=== PATIENT | female | born 1995 ===

== ENCOUNTER 2025-06-21 21:24 | Emergency (ER) | payer MEDICAID, SELFPAY ==
--- OUTSIDE RECORDS SUMMARY | 2025-05-31 12:00 | XMS_ITS ---
Author Organization [facility] enter Address [address] [place] [id number] Care Team Providers Care Portfolio Architect Name Role Phone Ted Reagan Primary Care Provider [phone] REASON FOR VISIT ED F/up Encounters Encounter Location Date Provider Diagnosis 21-Internal Medicine [address] [place] [phone] 05/31/2025 Ted Reagan Plan Of Treatment No Information Progress Notes * Maria Alejandra ROCADOB:[birth year] (30 yo F)Acc No.[id number]:05/31/2025 Progress Note Patient: Maria Alejandra COBB Provider: Lynnette Reagan MD :1995 A ge:30 Y S ex:Female Date:05/31/2025 Address:[address] [place] [address], [address] [facility], [id number] Subjective: * Chief Complaints: * 1 . ED F/up. * Medical History: * Ocular Surgical History: * Implants: Objective: * Vitals: Assessment: Plan: * Treatment: * Images: Billing Information: * Visit Code: * Procedure Codes: * Electronic signature of Erin Reagan MD on 06/21/2025 at 10:15 PM EDT Sign off status: Pending * Provider: Lynnette Reagan MD Date: 05/31/2025 Generated for Marga ng/Faogg/eTransmitting on: 06/21/2025 10:15 PM EDT
[2025-06-21 21:46] VITALS: BP 132/68; PULSE 87; RESP 16; TEMP 36.5; O2SAT 97; BMI 26.5
--- OUTSIDE RECORDS SUMMARY | 2025-06-21 22:15 | XMS_ITS | Clinical Summary ---
Author Organization [facility] Address [address] [place] [address] Phone Care Team Providers Care Machine Ii Trimmer Name Role Phone Ted Reagan MD Primary Care Provider [phone] Encounters Date Type Department Care Team Description 05/25/2025 9:09 PM EDT - 05/25/2025 10:33 PM EDT Emergency [facility] [address] [place] [address] Arley Zuniga MD Breast pain (Primary Dx) Discharge Disposition: Home or Self Care from Last 3 Months Social History Tobacco Use Types Packs/Day Years Used Date Smoking Tobacco: Never Assessed Comments Unknown Sex and Gender Information Value Date Recorded Sex Assigned at Female 05/25/2025 9:35 PM EDT Legal Sex Female 2:28 AM EST Gender Identity Female 05/25/2025 9:35 PM EDT Sexual Orientation Straight 05/25/2025 9: 35 PM EDT Obstetrics History Last Filed Vital Signs Vital Sign Reading Time Taken Comments Blood Pressure 150/65 05/25/2025 5:54 PM EDT Pulse 69 05/25/2025 5:54 PM EDT Temperature 36.6 C (97.8 F) 05/25/2025 5:54 PM EDT Respiratory Rate 16 05/25/2025 5:54 PM EDT Oxygen Saturation 98% 05/25/2025 5:54 PM EDT Inhaled Oxygen Concentration - - Weight 72.6 kg (160 lb) 04/09/2023 6:34 PM EDT Height 162.6 cm (5' 4 ) 04/09/2023 6:34 PM EDT Body Mass Index 27.46 04/09/2023 6:34 PM EDT Plan of Treatment Health Maintenance Due Date Last Done Comments Pneumococcal Vaccine: Pediatrics (0 to 5 Years) and At-Risk Patients (6 to 49 Years) (1 of 2 - PCV) 02/28/2016 Hepatitis B Vaccines (3 of 3 - 3-dose series) 12/22/2016 10/27/2016, 10/03/2014 HIV Screening 10/24/2022 Social Influencers of Health Screening 10/24/2022 Cervical Cancer Screening: Pap Smear 11/30/2022 11/30/2019 COVID-19 Vaccine ( season) 2024 Depression Screening 11/21/2024 Influenza Vaccine (#1) 2025 0, 12/08/2018, 12/18/2014, Additional history exists Cholesterol Screening (Lipid Panel) 05/25/2030 05/25/2025 DTaP,Tdap,and Td Vaccines (7 - Td or Tdap) 02/04/2031 02/04/2021, 12/24/2019, 06/05/2017, Additional history exists Meningococcal ACWY Vaccine Completed 09/03/2014 MMR Vaccines Completed 10/27/2016, 10/03/2014 Varicella Vaccines Completed 10/27/2016, 07/26/2012 Hepatitis C Screening Completed 09/04/2020 HPV Vaccines Completed 05/14/2021, 12/23, 08/11/2018, Additional history exists HIB Vaccines Aged Out No longer eligi ble based on patient's age to complete this topic Hepatitis A Vaccines Aged Out No long er eligible based on patient's age to complete this topic IPV Vaccines Aged Out No longer eligi ble based on patient's age to complete this topic Meningococcal B Vaccine Aged Out No l onger eligible based on patient's age to complete this topic RSV Immunization Patients Under 20 months Aged Out No longer eligible based on patient's age to complete this topic Procedures Procedure Name Priority Date/Time Associated Diagnosis Comments POC , URINE DIAGNOSTIC STAT 05/25/2025 9:52 PM EDT HCG, SERUM, QUALITATIVE STAT 05/25/2025 7:26 PM EDT CBC WITH AUTO DIFFERENTIAL STAT 05/25/2025 7:26 PM EDT LIPID PANEL STAT 05/25/2025 7:26 PM EDT B-TYPE NATRIURETIC PEPTIDE STAT 05/25/2025 7:26 PM EDT MAGNESIUM STAT 05/25/2025 7:26 PM EDT LIPASE STAT 05/25/2025 7:26 PM EDT COMPREHENSIVE METABOLIC PANEL STAT 05/25/2025 7:26 PM EDT CBC AND DIFFERENTIAL STAT 05/25/2025 7:26 PM EDT TROPONIN I HIGH SENSITIVITY STAT 05/25/2025 7:26 PM EDT XR CHEST 2 VIEWS STAT 05/25/2025 6:37 PM EDT from Last 3 Months Results * (ABNORMAL) POC , urine manually resulted (05/25/2025 9:52 PM EDT) [facility] HCG, Ur POC Negative Negative POC hCG Int QC Pass? Yes Yes EXPIRATION DATE POC 01/09/2027 LOT NUMBER POC [id number] Urine Urine specimen obtained by clean catch procedure / Unknown 05/25/2025 9:52 PM EDT us Arley Zuniga MD POINT OF CARE TEST ENTER/SALVADOR T ORDERABLES Final Result * Troponin I high sensitivity (05/25/2025 7:26 PM EDT) [facility] High Sensitivity Troponin I <2 0 - 14 ng/L LAB CHEMISTRY METHOD 05/25/2025 9:04 PM EDT [facility] Comment:Verified by repeat a nalysis Blood Venous blood specimen / Unknown Venipuncture / Unknown 05/25/2025 7:26 PM EDT 05/25/2025 7:43 PM EDT Narrative [facility] - 05/25/2025 9:04 PM EDT HSTnI results stratify to HIGH RISK category if any value >100 ng/L or delta at 1 hour is greater than or equal to 15 ng/L (male and female). Note: Delta values are not applicable if symptoms began more than 12 hours pre-arrival. Risk stratification should include the calculation of the HEART score. The testing method is an immunoenzymatic assay manufactured by [employer] and performed on the [employer] DxI 800. us Arley Zuniga MD LAB BLOOD ORDERABLES Final R esult [facility] [address] [place] [address], [place] [phone] * CBC auto differential (05/25/2025 7:26 PM EDT) WBC 7.3 4.0 - 10.5 K/mcL LAB HEMETOLOGY METHOD 05/25/2025 7:53 PM EDT [facility] RBC 4.32 4.20 - 5.40 M/mcL LAB HEMETOLOGY METHOD 05/25/2025 7:53 PM EDT [facility] Hemoglobin 13.7 12.5 - 16.0 g/dL LAB HEMETOLOGY METHOD 05/25/2025 7:53 PM EDT [facility] Hematocrit 40.6 37.0 - 47.0 % LAB HEMETOLOGY METHOD 05/25/2025 7:53 PM EDT [facility] MCV 94.0 78.0 - 100.0 FL LAB HEMETOLOGY METHOD 05/25/2025 7:53 PM EDT [facility] MCH 31.8 25.0 - 33.0 pcg LAB HEMETOLOGY METHOD 05/25/2025 7:53 PM EDT [facility] MCHC 33.8 32.0 - 36.0 g/dL LAB HEMETOLOGY METHOD 05/25/2025 7:53 PM EDT [facility] RDW 12.4 12.1 - 16.2 % LAB HEMETOLOGY METHOD 05/25/2025 7:53 PM EDT [facility] Platelets 259 150 - 450 K/mcL LAB HEMETOLOGY METHOD 05/25/2025 7:53 PM EDT [facility] MPV 8.6 7.4 - 11.4 FL LAB HEMETOLOGY METHOD 05/25/2025 7:53 PM EDT [facility] Neutrophils Relative 53.2 44.0 - 74.0 % LAB HEMETOLOGY METHOD 05/25/2025 7:53 PM EDT [facility] Lymphocytes Relative 33.1 20.0 - 48.0 % LAB HEMETOLOGY METHOD 05/25/2025 7:53 PM EDT [facility] Monocytes Relative 9.1 2.0 - 12.0 % LAB HEMETOLOGY METHOD 05/25/2025 7:53 PM EDT [facility] Eosinophils Relative 3.6 0.0 - 6.0 % LAB HEMETOLOGY METHOD 05/25/2025 7:53 PM EDT [facility] Basophils Relative 1.0 0.0 - 2.0 % LAB HEMETOLOGY METHOD 05/25/2025 7:53 PM EDT [facility] Neutrophils Absolute 3.90 1.80 - 7.80 K/mcL LAB HEMETOLOGY METHOD 05/25/2025 7:53 PM EDT [facility] Lymphocytes Absolute 2.40 1.00 - 3.20 K/mcL LAB HEMETOLOGY METHOD 05/25/2025 7:53 PM EDT [facility] Monocytes Absolute 0.70 0.00 - 0.80 K/mcL LAB HEMETOLOGY METHOD 05/25/2025 7:53 PM EDT [facility] Eosinophils Absolute 0.30 0.00 - 0.50 K/mcL LAB HEMETOLOGY METHOD 05/25/2025 7:53 PM EDT [facility] Basophils Absolute 0.10 0.00 - 0.20 K/mcL LAB HEMETOLOGY METHOD 05/25/2025 7:53 PM EDT [facility] Blood Venous blood specimen / Unknown Venipuncture / Unknown 05/25/2025 7:26 PM EDT 05/25/2025 7:43 PM EDT us Arley Zuniga MD LAB BLOOD ORDERABLES Final R esult [facility] [address] [place] [address], [place] [phone] * hCG Qualitative (05/25/2025 7:26 PM EDT) hCG Qual Negative Negative LAB CHEMISTRY METHOD 05/25/2025 8:20 PM EDT [facility] Blood Venous blood specimen / Unknown Venipuncture / Unknown 05/25/2025 7:26 PM EDT 05/25/2025 7:43 PM EDT us Mickey FANG LAB BLOOD ORDERABLES Final Result [facility] [address] [place] [address], [place] [phone] * B-type natriuretic peptide (05/25/2025 7:26 PM EDT) BNP 9 0 - 100 pcg/mL LAB CHEMISTRY METHOD 05/25/2025 8:18 PM EDT [facility] Blood Venous blood specimen / Unknown Venipuncture / Unknown 05/25/2025 7:26 PM EDT 05/25/2025 7:43 PM EDT us Arley Zuniga MD LAB BLOOD ORDERABLES Final R esult [facility] [address] [place] [address], [place] [phone] * Magnesium (05/25/2025 7:26 PM EDT) Magnesium 1.9 1.7 - 2.8 mg/dL LAB CHEMISTRY METHOD 05/25/2025 8:17 PM EDT [facility] Comment:Slightly Hemolyzed Blood Venous blood specimen / Unknown Venipuncture / Unknown 05/25/2025 7:26 PM EDT 05/25/2025 7:43 PM EDT us Arley Zuniga MD LAB BLOOD ORDERABLES Final R esult Performing Organization Address City/[facility]/ZIP Co de Phone Number [facility] [address] [place] [address], [place] [phone] * Lipase (05/25/2025 7:26 PM EDT) Pathologist [facility] Lipase 23 11 - 82 unit/L LAB CHEMISTRY METHOD 05/25/2025 8:17 PM EDT [facility] Blood Venous blood specimen / Unknown Venipuncture / Unknown 05/25/2025 7:26 PM EDT 05/25/2025 7:43 PM EDT us Arley Zuniga MD LAB BLOOD ORDERABLES Final R esult [facility] [address] [place] [address], [place] [phone] * (ABNORMAL) Lipid panel (05/25/2025 7:26 PM EDT) Cholesterol 96 0 - 200 mg/dL LAB CHEMISTRY METHOD 05/25/2025 8:17 PM EDT [facility] Triglycerides 153(H) <150 mg/dL LAB CHEMISTRY METHOD 05/25/2025 8:17 PM EDT [facility] HDL 40 35 - 80 mg/dL LAB CHEMISTRY METHOD 05/25/2025 8:17 PM EDT [facility] LDL Calculated 25(L) 50 - 130 mg/dL LAB CHEMISTRY METHOD 05/25/2025 8:17 PM EDT [facility] VLDL Cholesterol Stephen 30.6 mg/dL LAB CHEMISTRY METHOD 05/25/2025 8:17 PM EDT [facility] Comment:No established refer ence range. Blood Venous blood specimen / Unknown Venipuncture / Unknown 05/25/2025 7:26 PM EDT 05/25/2025 7:43 PM EDT Arley Zuniga MD LAB BLOOD ORDERABLES Final R esult [facility] [address] [place] [address], [place] [phone] * (ABNORMAL) Comprehensive metabolic panel (05/25/2025 7:26 PM EDT) Sodium 140 135 - 145 mmol/L LAB CHEMISTRY METHOD 05/25/2025 8:17 PM EDT [facility] Potassium 3.7 3.5 - 5.1 mmol/L LAB CHEMISTRY METHOD 05/25/2025 8:17 PM EDT [facility] Comment:Slightly Hemolyzed Chloride 105 98 - 107 mmol/L LAB CHEMISTRY METHOD 05/25/2025 8:17 PM EDT [facility] CO2 26 24 - 32 mmol/L LAB CHEMISTRY METHOD 05/25/2025 8:17 PM EDT [facility] Anion Gap 9 5 - 14 LAB CHEMISTRY METHOD 05/25/2025 8:17 PM EDT [facility] Glucose 143 70 - 199 mg/dL LAB CHEMISTRY METHOD 05/25/2025 8:17 PM [facility] BUN 14 7 - 17 mg/dL LAB CHEMISTRY METHOD 05/25/2025 8:17 PM [facility] Creatinine 0.50 0.50 - 1.00 mg/dL LAB CHEMISTRY METHOD 05/25/2025 8:17 PM [facility] eGFR 131 >=60 mL/min/1. 73m2 LAB CHEMISTRY METHOD 05/25/2025 8:17 PM [facility] Comment:Calculation based on the Chronic Kidney Disease Epidemiology Collaboration (CKD-EPI) equation refit without adjustment for race. BUN/Creatinine Ratio 28.0(H) 12.0 - 20.0 LAB CHEMISTRY METHOD 05/25/2025 8:17 PM [facility] Calcium 9.4 8.4 - 10.2 mg/dL LAB CHEMISTRY METHOD 05/25/2025 8:17 PM [facility] AST (SGOT) 21 5 - 40 unit/L LAB CHEMISTRY METHOD 05/25/2025 8:17 PM [facility] Comment:Slightly Hemolyzed ALT (SGPT) 16 7 - 52 unit/L LAB CHEMISTRY METHOD 05/25/2025 8:17 PM [facility] Alkaline Phosphatase 57 34 - 104 unit/L LAB CHEMISTRY METHOD 05/25/2025 8:17 PM [facility] Total Protein 7.0 6.4 - 8.5 g/dL LAB CHEMISTRY METHOD 05/25/2025 8:17 PM [facility] Albumin 4.5 3.5 - 5.0 g/dL LAB CHEMISTRY METHOD 05/25/2025 8:17 PM [facility] Total Bilirubin 0.7 0.3 - 1.0 mg/dL LAB CHEMISTRY METHOD 05/25/2025 8:17 PM [facility] Blood Venous blood specimen / Unknown Venipuncture / Unknown 05/25/2025 7:26 PM EDT 05/25/2025 7:43 PM EDT us Arley Zuniga MD LAB BLOOD ORDERABLES Final R esult [facility] [address] [place] [address], [place] [phone] * XR Chest 2 Views (05/25/2025 6:37 PM EDT) Anatomical Region Laterality Modality Body Radiographic Elisha ging 05/25/2025 6:41 PM EDT Impressions 05/25/2025 6:41 PM EDT 1. No acute process in the chest. Report reviewed and signed by : Dr. Davy Lee on 05/25/2025 6:41 PM. Workstation Name - [id number] -------- FINAL REPORT -------- Dictated By: Davy Lee Dictated Date: 05/25/2025 18:41 ET Assigned Physician: Davy Lee Reviewed and Electronically Signed By: Davy Lee Signed Date: 05/25/2025 18:41 ET Workstation ID: [id number] Transcribed By: Self Edit Transcribed Date: 05/25/2025 18:41 ET Narrative 05/25/2025 6:41 PM EDT EXAM: XR CHEST 2 VIEWS 05/25/2025 6:24 PM HISTORY: 30 years Female chest pain TECHNIQUE: XR CHEST 2 VIEWS COMPARISON: None. FINDINGS: Normal sized heart. No consolidation. No effusion. Negative for pneumothorax. Negative for acute osseous abnormality, lytic or blastic lesion. Procedure Note Davy Lee MD - 05/25/2025 EXAM: XR CHEST 2 VIEWS 05/25/2025 6:24 PM HISTORY: 30 years Female chest pain TECHNIQUE: XR CHEST 2 VIEWS COMPARISON: None. FINDINGS: Normal sized heart. No consolidation. No effusion. Negative for pneumothorax. Negative for acute osseous abnormality, lytic or blastic lesion. IMPRESSION: 1. No acute process in the chest. Report reviewed and signed by : Dr. Davy Lee on 05/25/2025 6:41 PM.Workstation Name - [id number] -------- FINAL REPORT -------- Dictated By: Davy Lee Dictated Date: 05/25/2025 18:41 ET Assigned Physician: Dayv Lee Reviewed and Electronically Signed By: Davy Lee Signed Date: 05/25/2025 18:41 ET Workstation ID: [id number] Transcribed By: Self Edit Transcribed Date: 05/25/2025 18:41 ET us Arley Zuniga MD IMG XR PROCEDURES Final Resu lt from Last 3 Months Insurance MEDICAID - [place] Care Teams Machine Ii Trimmer Relationship Specialty Start Date End Date Ted Reagan MD [address] [place] [address] PCP - General Internal Medicine 05/25/25
--- OUTSIDE RECORDS SUMMARY | 2025-06-21 22:15 | XMS_ITS | Clinical Summary ---
Author Organization [facility] Address [address] [place] [address] Care Team Providers Care Biologics Specialist Name Role Phone Jaylin Francisco PA-C Primary Care Provi lesia Joanna Overton FOOT AND ANKLE SURGEON Unavailable [phone] Cralito Emanuel MD Unavailable [phone] Hector Mojica TRACTOR OPERATOR HELPER Unavailable [phone] Mickey Johns MD Unavailable [phone] Damon Gonzalez FOOT AND ANKLE SURGEON Unavailable [phone] Allergies Active Allergy Reactions Criticality Noted Date Comments Penicillins Anaphylaxis,Rash/Dermatitis High 019 Shellfish Allergy Anaphylaxis High 12/24/2019 Shrimp Anaphylaxis High 09/20/2022 Medications * This document contains information received from the source organization and may not represent a complete record from that organization. acetaminophen (TYLENOL) 325 MG tablet Take 2 tablets (650 mg total) by mouth 4 times daily (every 6 hours) as needed for mild pain or fever. 30 tablet 4 Active predniSONE (DELTASONE) 10 MG tablet Take 1 tablet (10 mg total) by mouth See Admin Instructions. 6 tabs PO daily for 7 days, followed by 4 tabs PO daily for 7 days, and then 2 tabs PO daily for 7 days 84 tablet 4 Active hydrOXYzine HCl (ATARAX) 25 MG tablet Take 1-2 tablets (25-50 mg total) by mouth 4 times daily (every 6 hours) as needed for anxiety (symptoms). 24 tablet 4 Active camphor-menthol (SARNA) lotion Apply topically as needed for itching. 222 mL 4 Active zolpidem (AMBIEN) 10 MG tabletIndication s:Insomnia, unspecified type Take 1 tablet (10 mg total) by mouth nightly as needed for sleep. 90 tablet 1 5 Active mirtazapine (REMERON) 7.5 MG tabletIndication s:Severe episode of recurrent major depressive disorder, with psychotic features (HCC) TAKE 1 TABLET BY MOUTH EVERY DAY NIGHTLY 90 tablet 1 5 Active Active Problems Problem Noted Date Diagnosed Date Other insomnia 02/24/2024 Assessment & Plan (01/10/2025 12:36 PM EST): Continue Mirtazapine 7.5mg Nightly Continue Zolpidem 10mg Nightly Assessment & Plan (10/11/2024 1:04 PM EST): Continue Mirtazapine 7.5mg Nightly Assessment & Plan (07/11/2024 3:36 PM EDT): Continue Zolpidem dosing Assessment & Plan (04/12/2024 11:23 AM EDT): Continue Zolpidem dosing Assessment & Plan (02/24/2024 11:24 AM EDT): Continue Zolpidem dosing Severe episode of recurrent major depressive disorder, with psychotic features 12/15/2023 Assessment & Plan (01/10/2025 12:35 PM EST): Continue Mirtazapine 7.5mg Nightly Assessment & Plan (10/11/2024 1:04 PM EST): Continue Mirtazapine 7.5mg Nightly Assessment & Plan (07/11/2024 3:36 PM EDT): Continue Mirtazapine dosing Assessment & Plan (04/12/2024 11:24 AM EDT): Continue Mirtazapine dosing Assessment & Plan (02/24/2024 11:24 AM EDT): Continue Mirtazapine dosing Assessment & Plan (01/27/2024 10:14 AM EST): Continue Mirtazapine dosing Assessment & Plan (12/29/2023 12:56 PM EST): D/C Quetiapine reports of Nausea and vomiting. Start Mirtazapine dosing Assessment & Plan (12/15/2023 2:30 PM EST): Continue Quetiapine dosing Anxiety Overview (12/15/2023): Continue Hydroxyzine dosing Assessment & Plan (01/10/2025 12:36 PM EST): Continue IT Assessment & Plan (04/12/2024 11:23 AM EDT): Continue Hydroxyzine dosing Assessment & Plan (02/24/2024 11:23 AM EDT): Continue Hydroxyzine dosing Assessment & Plan (01/27/2024 10:14 AM EST): Continue Hydroxyzine dosing Assessment & Plan (12/29/2023 12:54 PM EST): Continue Hydroxyzine dosing Encounters * This document contains information received from the source organization and may not represent a complete record from that organization. Date Type Department Care Team Description 06/21/2025 8:00 AM EDT Hospital Encounter [facility] Radiology [address] [place] [address] Raissa Isabel CNM Mastodynia; Skin change 06/04/2025 Scanned Document [facility] [address] [facility] [address] [place] [id number] Radiology, Scan 04/30/2025 Travel from Last 3 Months Family History Medical History Relation Name Comments Anxiety disorder Mother Depression Mother Depression Sister Relation Name Status Comments Mother Sister Social History Tobacco Use Types Packs/Day Years Used Date Smoking Tobacco: Never Assessed Comments Unknown Sex and Gender Information Value Date Recorded Sex Assigned at Female 05/07/2024 3:44 PM EDT Legal Sex Female 2:44 PM EDT Gender Identity Female 05/07/2024 3:44 PM EDT Sexual Orientation Heterosexual (straight) 05/07 3:44 PM EDT Last Filed Vital Signs Vital Sign Reading Time Taken Comments Blood Pressure 125/77 07/24/2024 6:39 PM EDT Pulse 76 07/24/2024 6:39 PM EDT Temperature 37.1 C (98.8 F) 07/24/2024 6:39 PM EDT Respiratory Rate 16 07/24/2024 6:39 PM EDT Oxygen Saturation 99% 07/24/2024 6:39 PM EDT Inhaled Oxygen Concentration - - Weight 78.9 kg (174 lb) 07/24/2024 6:41 PM EDT Height 162.6 cm (5' 4 ) 07/24/2024 6:41 PM EDT Body Mass Index 29.87 07/24/2024 6:41 PM EDT Plan of Treatment Health Maintenance Due Date Last Done Comments Hepatitis C Virus Screening 1997 DTaP/Tdap/Td Vaccines (1 - Tdap) 02/28/2016 Hepatitis B Vaccines (1 of 3 - 19+ 3-dose series) 02/28/2016 Pap Smear (Ages 21-65) 2018 COVID-19 Vaccine ( - 2023-2 5 season) 2024 Influenza Vaccine 06/21/2025 10/13/2020, 12/18/2014, 10/03/2014 HIV Screening Completed 07/24/2024 HPV Vaccines Aged Out No longer eligi ble based on patient's age to complete this topic Pneumococcal Vaccine: Pediatric (0-5 Years) and At-Risk Patients (6 to 49 Years) Aged Out No longer eligible b ased on patient's age to complete this topic Goals Goal Patient Goal Type Associated Problems Recent Progress Patient-Stated? Author [phone] Take medications as prescribed and report any side effects to appropriate professionals. Care Plan Depression On track(2023 11:53 AM EDT) No Joanna Overton LCSW Note: 04/04/2024 patient reports good compliance with medication protocol. Reports that current medication protocol, is beneficial. 07/18/2024 Patient reports Benefit from current medication protocol. 02/26/2025: Patient reports medication compliance. MARS GOAL 2 - Make good choices Care Plan Depression No progress(06/2025 7:41 AM EDT) No Joanna Overton LCSW Note: Pt. will report at least a 1 point increase on the MARS-12 outcome measure item (#2) I believe I make good choices in life on the next administration of the measure. Pt. will discuss times when they made healthy life choices or pt. will discuss when they have made unhealthy life choices and identify what they can do differently in future appointments Frequency As needed Duration 90 days Modality: Medication management [phone] Utilize behavioral strategies to overcome depression. Care Plan Depression No progress( 11:54 AM EDT) No Joanna Overton LCSW Note: 04/04/2024 patient reports utilizing strategies to overcome depressed mood, and maintain stability. 07/18/2024 Patient reports I am doing nothing. I think a lot . 02/26/2025: Patient reports that her coping skills include drawing. Alleviate symptoms of stress-related depression through medication and/or psychotherapy. Care Plan Depression No progress( 11:55 AM EDT) No Joanna Overton LCSW Note: 04/04/2024 Patient continues to attend therapy sessions and medication management to address symptoms, and cope with stressors. 07/18/2024 patient has continued to attend therapy sessions, and seeing prescriber. 02/26/2025: Patient reports anxiety 4 out of 10 as manifested by excessive worrying, unable to sleep, early awakenings. Patients report depression 10 out of 10 sadness. Patient reports 0 panic attacks x week. Patient reports flashbacks and frequent nightmares. Patient reports low energy and motivation. Patient reports concentration problems. Patient reports sleeping 3 hours a night. Patient denies auditory hallucinations. Patient reports visual hallucinations (shadows). Patient denies any current suicidal and/or homicidal thoughts, plans, behaviors, and/or intent. I want to be stable for my family Care Plan Need for Continued Psychiatric Medication Management No Hector Solis se L, TRACTOR OPERATOR HELPER Patient will report symptoms have been significantly reduced and no longer interfere with their functioning, symptoms will have been stabilized without the need for a higher level of care for at least one year. Care Plan Need for Continued Psychiatric Medication Management No Betty-Hector Melgar se L, TRACTOR OPERATOR HELPER Patient-reported Measure Care Plan Need for Continued Psychiatric Medication Management No Hector Solis se L, TRACTOR OPERATOR HELPER Note: Patient will report at least a 1 point increase on the MARS-12 outcome measure item (#1) I am hopeful about the future on the next administration of the measure. Patient will verbalize a commitment to engage in 1 or more positive activities over the next 3 months and report progress in the future appointments Frequency: Every 12 weeks or earlier if clinically indicated Duration: 20-60 minute appointment Modality: Medication Management Will identify and work to reduce the impact of symptoms on functioning by focusing on recovery and assisting the patient in making informed decisions regarding the treatment options Care Plan Need for Continued Psychiatric Medication Management No Hector Solis se L, TRACTOR OPERATOR HELPER Note: Frequency: Every 12 weeks or earlier if clinically indicated Duration: 20-60 minute appointment Modality: Medication Management Applies to all interventions, unless otherwise indicated Patient will report symptoms have been significantly reduced and no longer interfere with their functioning, symptoms will have been stabilized without the need for a higher level of care for at least one year. Care Plan Need for Continued Psychiatric Medication Management No Hector Solis se L, TRACTOR OPERATOR HELPER Patient-reported Measure Care Plan Need for Continued Psychiatric Medication Management No Hector Solis se L, TRACTOR OPERATOR HELPER Note: Patient will report at least a 1 point increase on the MARS-12 outcome measure item (#1) I am hopeful about the future on the next administration of the measure. Patient will verbalize a commitment to engage in 1 or more positive activities over the next 3 months and report progress in the future appointments Frequency: Every 12 weeks or earlier if clinically indicated Duration: 20-60 minute appointment Modality: Medication Management Will identify and work to reduce the impact of symptoms on functioning by focusing on recovery and assisting the patient in making informed decisions regarding the treatment options Care Plan Need for Continued Psychiatric Medication Management No Hector Solis se, APRN Note: Frequency: Every 12 weeks or earlier if clinically indicated Duration: 20-60 minute appointment Modality: Medication Management Applies to all interventions, unless otherwise indicated Patient will report symptoms have been significantly reduced and no longer interfere with their functioning, symptoms will have been stabilized without the need for a higher level of care for at least one year. Care Plan Depression No Hector Solis se, APRN Patient-reported Measure Care Plan Depression No Hector Solis se, APRN Note: Patient will report at least a 1 point increase on the MARS-12 outcome measure item (#1) I am hopeful about the future on the next administration of the measure. Patient will verbalize a commitment to engage in 1 or more positive activities over the next 3 months and report progress in the future appointments Frequency: Every 12 weeks or earlier if clinically indicated Duration: 20-60 minute appointment Modality: Medication Management Will identify and work to reduce the impact of symptoms on functioning by focusing on recovery and assisting the patient in making informed decisions regarding the treatment options Care Plan Depression No Hector Solis se, APRN Note: Frequency: Every 12 weeks or earlier if clinically indicated Duration: 20-60 minute appointment Modality: Medication Management Applies to all interventions, unless otherwise indicated Procedures Procedure Name Priority Date/Time Associated Diagnosis Comments US BREAST DIAGNOSTIC COMPLETE-BILATERAL Routine 06/21/2025 9:01 AM EDT Mastodynia Skin change HX OUTSIDE ORDER 06/04/2025 10:3 7 AM EDT HIV 1/2 AG/AB CMIA REFLEX TO CONFIRMATION STAT 07/24/2024 6:48 PM EDT from Last 3 Months or Most Recently Relevant to Health Maintenance Results * US Breast diagnostic complete-Bilateral (06/21/2025 9:01 AM EDT) Anatomical Region Laterality Modality Breast Bilateral Ultrasound 06/21/2025 8:22 AM EDT Impressions 06/21/2025 10:32 AM EDT No sonographic abnormality in the bilateral breasts to explain the etiology of patient's complaints. ASSESSMENT: BI-RADS 1 - Negative RECOMMENDATION: Clinical follow-up as appropriate Consider dermatology consultation for ongoing skin changes as clinically appropriate. If patient continues to have left nipple discharge in association with symptoms above, further evaluation may be obtained with an MRI. Findings reviewed with the patient at the time of the examination. A letter summarizing the findings was given to the patient. Ishan Mendenhall, DO Filling Hauler I personally reviewed the images and, if necessary, edited the report. I agree with the report as now presented. I personally reviewed the images and the resident's preliminary report and AGREE with the report as it is now presented ([id number]). Narrative 06/21/2025 10:32 AM EDT EXAMINATION: BREAST DIAGNOSTIC ULTRASOUND, Bilateral INDICATION: Mastodynia; Skin change; bilateral mastaigia with increased thickness of the left breast and associated skin changes. Upon interviewing, patient also reported one episode of spontaneous greenish/brownish discharge from the left breast 2 weeks before the exam. Of note, the patient was noted to have skin changes and redness throughout her bilateral breasts and trunk. The patient thought she may have had an allergic reaction, however unsure. No obvious periareolar skin changes or nipple changes. COMPARISONS: None available. TECHNIQUE: Targeted sonographic evaluation was performed using a high frequency linear transducer. FINDINGS: Left breast: Targeted sonographic evaluation of the left breast in the area of concern in the retroareolar region does not demonstrate any focal sonographic abnormality. Homogenous fibroglandular breast tissue with no discrete mass. No areas of architectural distortion identified. No definitive intraductal mass. Right breast: Targeted sonographic evaluation of the right breast in the area of concern in the retroareolar region does not demonstrate any focal sonographic abnormality. Homogenous fibroglandular breast tissue with no discrete mass. No areas of architectural distortion identified. No definitive intraductal mass. Incidentally noted morphologically benign appearing intramammary lymph node at 8:30, 5 cm from the nipple. us Raissa Isabel CN IMG US ORDERABLES Final Re sult * OUTSIDE ORDER (06/04/2025 10:37 AM EDT) us Scan Radiology HX AMB PROCEDURES Final Result * HIV 1/2 Ag/Ab CMIA Reflex to Confirmation (07/24/2024 6:48 PM EDT) HIV 1/2 Ag/Ab CMIA Nonreactive Nonreactive 07/25/2024 11:16 AM EDT [facility] Comment: Results show no evidence of infection by HIV 1/2. If clinically indicated, repeat CMIA or test by nucleic acid amplification. HIV 1/2 Antigen/Antibody CMIA reflex to confirmation AND HIV-1 RNA viral load recommended in patients who are taking or have recently taken PrEP. Blood Serum specimen / Unknown 07/24/2024 6:48 PM EDT 07/24/2024 6:58 PM EDT us Charlie Mckeon MD LAB BLOOD ORDERABLES Final Res ult [facility] [address] [place] [address], from Last 3 Months or Most Recently Relevant to Health Maintenance Additional Health Concerns Active Problems Noted Date Diagnosed Date Depression 12/12/2023 Need for Continued Psychiatric Medication Manage ment 10/11/2024 Depression 10/11/[address] [place] [address] [place] [address] [facility] Care Teams Biologics Specialist Relationship Specialty Start Date End Date Jaylin Francisco PA-C [address] [address] PCP - General Adult Health - PA/APNP/CLINICAL EDUCATION MANAGER/TRACTOR OPERATOR HELPER 06/24/23 Joanna Overton, FOOT AND ANKLE SURGEON [address] [place] [id number] Supervisor Extruding Department Clinical Social Work 12/12/23 Carlito Emanuel MD [address] [place] [address] Physician Psychiatry, General 12/12/23 Hector Mojica, TRACTOR OPERATOR HELPER [address] [place] [address] Nurse Practitioner Psychiatry, General 12/15/23 Mickey Johns MD [address] [place] [address] Psychiatry, General 01/01/25 Damon Gonzalez, FOOT AND ANKLE SURGEON [address] [place] [phone] Supervisor Extruding Department Clinical Social Work 02/26/25
--- OUTSIDE RECORDS SUMMARY | 2025-06-21 22:17 | XMS_ITS | Clinical Summary ---
Author Organization [facility] Address [address] [place] [address] Care Team Providers Care Retail Key Holder Name Role Phone Pcp, Need Primary Care Provider Unavailabl e Allergies Active Allergy Reactions Criticality Noted Date Comments Penicillins 09/20/2022 Shrimp Anaphylaxis High 09/20/2022 Medications Medication Sig Dispensed Refills Start Date End Date Status azithromycin (Zithromax Z-Freddie) 250 MG tablet Take 2 tablets together, the first day. Then one tablet daily for four more days. 6 tablet 0 09/20/2022 Active albuterol 108 (90 Base) MCG/ACT inhaler Inhale 2 puffs into the lungs every 6 (six) hours as needed for wheezing. 6.7 g 1 09/20/2022 Active guaiFENesin 200 MG tablet Take 2 tablets (400 mg total) by mouth every 4 (four) hours as needed for congestion. 30 tablet 0 09/20/2022 Active meclizine (ANTIVERT) 25 MG tablet Take 1 tablet (25 mg total) by mouth 3 (three) times a day as needed. 12 tablet 0 12/31/2022 Active ondansetron (ZOFRAN) 8 MG tablet Take 0.5 tablets (4 mg total) by mouth every 8 (eight) hours as needed for nausea. 5 tablet 0 04/09/2023 Active triamcinolone (KENALOG) 0.1 % cream Apply topically 2 (two) times a day. 80 g 0 09/12/2024 Active Active Problems No known active problems Social History Tobacco Use Types Packs/Day Years Used Date Smoking Tobacco: Never Assessed Sex and Gender Information Value Date Recorded Sex Assigned at Female 09/20/2022 5:39 PM EDT Gender Identity Not on file Sexual Orientation Not on file Job Start Date Occupation Industry Not on file Not on file Not on file Last Filed Vital Signs Vital Sign Reading Time Taken Comments Blood Pressure 134/77 09/12/2024 5:02 PM EDT Pulse 88 09/12/2024 5:02 PM EDT Temperature 36.9 C (98.4 F) 09/12/2024 5:02 PM EDT Respiratory Rate 20 09/12/2024 5:02 PM EDT Oxygen Saturation 98% 09/12/2024 5:02 PM EDT Inhaled Oxygen Concentration - - Weight 72.6 kg (160 lb) 04/09/2023 6:34 PM EDT Height 162.6 cm (5' 4 ) 04/09/2023 6:34 PM EDT Body Mass Index 27.46 04/09/2023 6:34 PM EDT Plan of Treatment Not on file Care Teams Retail Key Holder Relationship Specialty Start Date End Date Rickey Noyola PCP - General Internal Medicine 09/12/24
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
--- NOTE | 2025-06-21 23:13 | ED.ANIMALBIT ---
HPI - Animal Bite General Chief Complaint: Animal Bite Stated Complaint: dog bite Time Seen by Provider: 06/21/25 23:06 Source: patient Mode of arrival: ambulatory Limitations: no limitations History of Present Illness ED Provider: Dr. Roz Torres HPI narrative: patient comes to the emergency room complaining of dog bite to the right calf. Patient states that 40 minutes prior to arrival, patient had just finished cooking and was going to take food to some relatives. Patient was walking in the street and a dog randomly walked up to her and bit her. Patient believes that the dog was some kind of Schnauzer mix, unknown if the dog has an regional clinical research associate. The dog was by himself. Patient does not know anything about his dog. Patient complaining of localized pain. Also, patient states that she is allergic to dogs and she started having hives after the dog encounter. Patient complaining of diffuse itchiness and does have hives. No difficulty breathing or wheezing. Patient states that she is not sure if she is up-to-date with her Tdap Related Data Previous Rx's ?Medication ?Instructions ?Recorded doxycycline monohydrate 100 mg 100 mg PO BID #10 caps 06/21/25 capsule ibuprofen 600 mg tablet 600 mg PO TID PRN fever or pain 06/21/25 #20 tabs metronidazole 500 mg tablet 500 mg PO BID #10 tabs 06/21/25 Allergies Allergy/AdvReac Type Severity Reaction Status Date / Time dog dander (dogs) Allergy Hives Verified 06/21/25 21:49 seafood Allergy Anaphylaxis Verified 06/21/25 21:49 Review of Systems Review of Systems: Constitutional : No Weight loss, No Fever, No Chills, No Night Sweats, No Fatigue, No Malaise ENT/Mouth : No Hearing loss, No Ear Pain, No Nasal Congestion, No Sinus Pain, No Hoarseness, No sore throat, No Rhinorrhea, No Swallowing Difficulty Eyes: No Eye Pain, No Swelling, No Redness, No Foreign Body, No Discharge, No Vision Changes Cardiovascular : No Chest Pain, No SOB, No Dyspnea on Exertion, No Orthopnea, No Edema, No Palpitations Respiratory : No Cough, No Sputum, No Wheezing, No Smoke Exposure, No Dyspnea Gastrointestinal : No Nausea, No Vomiting, No Diarrhea, No Constipation, No abdominal Pain, No Hematochezia, No Melena Genitourinary : no irregular bleeding, No Dysuria, No Urinary Frequency, No Hematuria, No Urinary Incontinence, No Urgency, No Flank Pain, No Urinary Flow Changes, No Hesitancy Musculoskeletal : No joint pain, No Myalgias, No Joint Swelling Skin : complaining of a dog bite to the right calf Neuro : No Weakness, No Numbness, No Paresthesias, No Loss of Consciousness, No Dizziness, No Headache Psych : No Anxiety/Panic, No Depression, No SI/HI/AH/VH, No Social Issues, Heme/Lymph: No Bruising, No Bleeding,No Lymphadenopathy Endocrine : No Polyuria, No Polydipsia, No Temperature Intolerance PMFSH Social History Social History Advance Directives: No Advance Directives Information Provided: No Do you have a plan to hurt others: No Plan Physical Exam ED Exam Exam: Appearance: Alert. Oriented X3. No acute distress. Eyes: Pupils equal, round and reactive to light. ENT: Pharynx normal. Neck: Normal inspection. Neck supple. No lymph nodes noted. No crepitus CVS: Normal heart rate and rhythm. Pulses normal. Normal S1 and S2 Respiratory: No respiratory distress. Breath sounds normal. No Wheezing. No rales Abdomen: Soft and nontender. No rigidity. No distention. Skin: Skin warm and dry. Normal skin color. Normal skin turgor. Extremities: No lower extremity edema. No Lacerations. No Rash on the right calf, patient has multiple puncture wounds, bleeding controlled, an ecchymosis around the bite Neuro: Oriented X 3. No motor deficit. No sensory deficit. Moving all extremities. No slurred speech. CN 2 through 12 grossly intact Psych: calm, cooperative, normal affect Vital Signs: Vital Signs - 24 hr 06/21/25 21:46 Temperature 97.7 F Pulse Rate 87 Respiratory Rate 16 Blood Pressure 132/68 Pulse Oximetry 97 Oxygen Delivery Method Room Air BMI result Body Mass Index 26.5 Course Course Course Narrative: I discussed with the patient that we do not know anything about the dog, and discussed the mortality of a rabies infection. Patient agreeable to complete the course of rabies immunizations patient being given Tdap, immunoglobulin, rabies vaccine, empiric treatment with p.o. metronidazole and doxycycline, patient states that she has a severe allergy / rash to penicillins also, due to allergic reaction, patient being given p.o. prednisone, Benadryl and p.o. 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, helping a schedule the patient has follow-up appointments for rabies immunizations Differential Diagnosis Differential Diagnoses: The differential diagnosis associated with the presentation includes ( puncture wound, dog bite) Admission/Observation Consideration of admission/observation: Escalation of care including admission/observation considered ( given patient's allergic reaction to the dog plus other medications that were given to the patient, observation was considered) Critical Care Time Critical Care Time Critical Care Time: Yes Total Critical Care Time: 35 Attestation: I have personally provided critical care time. Time includes review of lab data, radiology results, discussion with consultants, and monitoring for potential decompensation. Intervention performed as documented. Discharge Plan Discharge Clinical Impression: Dog bite, Allergic reaction Patient Disposition: Home, Self-Care Instructions: Animal Bite (ED), Rabies (ED), General Allergic Reaction (ED) Additional Instructions: your nurse will give you instructions regarding your scheduled appointment for your Upcoming rabies vaccines. Please follow-up with your primary care physician tomorrow. If you have any worsening or new symptoms, please return to the emergency room or call 911 Prescriptions: New doxycycline monohydrate 100 mg capsule 100 mg PO BID Qty: 10 0RF metronidazole 500 mg tablet 500 mg PO BID Qty: 10 0RF ibuprofen 600 mg tablet 600 mg PO TID PRN (Reason: fever or pain) Qty: 20 0RF Stand Alone Forms: Work/School Release Print Language: Setswana
[2025-06-21] MEDS: Rabies Immune Globulin/PF 900 UNIT/3 ML VIAL 1402 UNIT IM (23:50)
[2025-06-21] MEDS: Rabies Vaccine (PCEC)/PF 1 ML VIAL IM (23:50)
[2025-06-21] MEDS: Diphth,Pertus(ACell),Tet Adult 0.5 ML SYRINGE IM (23:51)
[2025-06-22 00:40] VITALS: BP 132/68; PULSE 87; RESP 16; TEMP 36.5; O2SAT 97
== END 2025-06-22 00:41 | disposition home or self-care (01) ==
PROVIDERS: Emergency Provider Emergency Medicine
DX: S81.851A Open bite, right lower leg, initial encounter (principal); W54.0XXA Bitten by dog, initial encounter; Y93.01 Activity, walking, marching and hiking; Y92.480 Sidewalk as the place of occurrence of the external cause; Y99.8 Other external cause status; Z20.3 Contact with and (suspected) exposure to rabies; Z23 Encounter for immunization
CPT/HCPCS: 90375; 90471; 90675; 90715; 96372; 99284